=== PATIENT | female | born 2005 | race Asian ===

== ENCOUNTER 2024-12-01 15:23 | Inpatient (IN) | payer MEDICAID, OTHER ==
[~2024-12-01] VITALS: Ht 162.6 cm; Wt 68.6 kg
[2024-12-01] MEDS ORDERED: BUPR150T12 PO (17:20)
[2024-12-01] MEDS ORDERED: HOME MED LIST COMPLETE! XX SCH (17:25)
[2024-12-02] MEDS: buPROPion **XL** 150 MG TABLET PO SCH (09:36)
[2024-12-03] MEDS ORDERED: OLANZapine 5 MG TAB PO PRN (10:55)
[2024-12-03] MEDS ORDERED: HALOPERIDOL 5 MG TAB PO PRN (10:55)
[2024-12-03] MEDS ORDERED: IBUPROFEN 400 MG TAB PO PRN (10:55)
[2024-12-03] MEDS ORDERED: LORazepam 1 MG TAB PO PRN (10:55)
[2024-12-03] MEDS ORDERED: MAALOX 30 ML SUSP *UDC PO PRN (10:55)
[2024-12-03] MEDS ORDERED: ACETAMINOPHEN 325 MG TAB PO PRN (10:55)
[2024-12-03] MEDS ORDERED: MOM 30 ML SUSPENSION UDC PO PRN (10:55)
[2024-12-03 11:29] VITALS: BP 119/69; TEMP 98.6; O2SAT 98
[2024-12-04 06:42] VITALS: BP 123/69; TEMP 97.2; O2SAT 99
[2024-12-04] MEDS ORDERED: NICOTINE 14 MG/24 HR TRANSDERMAL TD SCH (09:00)
[2024-12-04] MEDS: buPROPion **XL** 150 MG TABLET PO SCH (12:57)
[2024-12-04 16:19] VITALS: BP 117/70; TEMP 97.8; O2SAT 96
[2024-12-04] MEDS: traZODone 50 MG TAB PO PRN (21:01)
[2024-12-05 06:30] VITALS: BP 97/51; TEMP 97.9; O2SAT 99
[2024-12-05 15:16] VITALS: BP 115/59; TEMP 98; O2SAT 100
[2024-12-06 06:28] VITALS: BP 102/57; TEMP 98.1; O2SAT 99
[2024-12-06] MEDS ORDERED: BUPR150T12 PO (08:37)
== END 2024-12-06 13:01 | disposition home or self-care (01) | DRG 751 ==
LOC: M ED 15:23 → M ED INP 12-03 10:55 → M PSY 12-03 11:21
PROVIDERS: ADMIT Internal Medicine; ATTEND Internal Medicine
DX: F33.1 Major depressive disorder, recurrent, moderate (principal); R45.851 Suicidal ideations; F41.9 Anxiety disorder, unspecified; R51.9 Headache, unspecified